=== PATIENT | female | born 1955 | race Caucasian/White ===

== ENCOUNTER → 2017-03-10 | Outpatient (CLI) | payer OTHER ==
[2017-03-10 09:26] LABS: ASPARTATE AMINO TRANSFERASE 16 U/L (15-37); BLOOD UREA NITROGEN 20 mg/dL (7-18)
== END | disposition home or self-care (01) ==
LOC: LAB 08:54
PROVIDERS: ATTEND Family Medicine
DX: E78.5 Hyperlipidemia, unspecified (principal)
CPT/HCPCS: 36415; 80053; 80061; 83036; 85025

== ENCOUNTER → 2017-05-07 | Outpatient (CLI) | payer OTHER | END | disposition home or self-care (01) | LOC: CVU 13:46 | PROVIDERS: ATTEND Internal Medicine Cardiovascular Disease | DX: I35.1 Nonrheumatic aortic (valve) insufficiency (principal) | CPT/HCPCS: 93306 ==

== ENCOUNTER 2017-07-28 16:32 | Emergency (ER) | payer OTHER ==
[~2017-07-28] VITALS: Ht 154.9 cm; Wt 72.0 kg
[2017-07-28] MEDS ORDERED: ROSU5TAB PO (16:43)
[2017-07-28] MEDS ORDERED: METO25TA35 PO (16:43)
[2017-07-28] MEDS ORDERED: CETI10TA24 PO (16:44)
[2017-07-28] MEDS ORDERED: SODIUM CHLORIDE 0.9% 1,000ML IVBOLUS ONE ×2 (17:00→20:00)
[2017-07-28 17:03] LABS: HEMATOCRIT 42.9 % (34.6-47.8); HEMOGLOBIN 14.5 g/dL (11.7-16.4); WHITE BLOOD COUNT 15.6 x10^3/uL (3.4-10)
[2017-07-28 17:16] LABS: BLOOD UREA NITROGEN 20 mg/dL (7-18)
[2017-07-28 17:30] LABS: IS PT STATUS REG ER OR PRE ER? YES
[2017-07-28 20:44] VITALS: BP 152/76
== END 2017-07-28 20:49 | disposition home or self-care (01) ==
LOC: ED 20:43
DX: R00.0 Tachycardia, unspecified (principal); E78.5 Hyperlipidemia, unspecified; I10 Essential (primary) hypertension
CPT/HCPCS: 36415; 71010; 80048; 82040; 83735; 84443; 84484; 85025; 85379; 93005; 96360; 96361; 99285; J7030

== ENCOUNTER → 2017-08-09 | Outpatient (CLI) | payer OTHER ==
[~2017-08-09] MED LIST: CETI10TA24 PO; METO25TA35 PO; ROSU5TAB PO
== END | disposition home or self-care (01) ==
LOC: CVU 09:15
PROVIDERS: ATTEND Internal Medicine Cardiovascular Disease
DX: I08.0 Rheumatic disorders of both mitral and aortic valves (principal); I10 Essential (primary) hypertension; E78.5 Hyperlipidemia, unspecified
CPT/HCPCS: 93306

== ENCOUNTER → 2017-08-27 | Outpatient (CLI) | payer OTHER | END | disposition home or self-care (01) | LOC: CFH 08:27 | DX: Z12.31 Encounter for screening mammogram for malignant neoplasm of breast (principal) | CPT/HCPCS: G0202 ==

== ENCOUNTER 2017-09-10 14:28 | Emergency (ER) | payer OTHER ==
[~2017-09-10] VITALS: Ht 154.9 cm; Wt 68.9 kg
[2017-09-10] MEDS ORDERED: ONDANSETRON 2MG/ML, 2ML ONE (16:15)
[2017-09-10 16:22] LABS: HEMATOCRIT 45.1 % (34.6-47.8); HEMOGLOBIN 15.1 g/dL (11.7-16.4); WHITE BLOOD COUNT 10.4 x10^3/uL (3.4-10)
[2017-09-10] MEDS ORDERED: SODIUM CHLORIDE 0.9% 1,000ML IVBOLUS ONE (16:30)
[2017-09-10] MEDS ORDERED: ONDANSETRON 2MG/ML, 2ML IVPush ONE (16:30)
[2017-09-10] MEDS ORDERED: SODIUM CHLORIDE FLUSH 10ML SYR IVF ONE (16:30)
[2017-09-10 16:34] LABS: ASPARTATE AMINO TRANSFERASE 38 U/L (15-37); BLOOD UREA NITROGEN 26 mg/dL (7-18)
[2017-09-10 17:33] VITALS: BP 131/74
== END 2017-09-10 17:48 | disposition home or self-care (01) ==
LOC: ED 15:51
DX: A08.4 Viral intestinal infection, unspecified (principal); E78.5 Hyperlipidemia, unspecified; I10 Essential (primary) hypertension
CPT/HCPCS: 36415; 80053; 81001; 83605; 83690; 85025; 87086; 96361; 96374; 99284; J2405; J7030

== ENCOUNTER → 2019-01-05 | Outpatient (CLI) | payer OTHER ==
[2019-01-05 10:25] LABS: BASOPHILS # (AUTO) 0.09 x10^3/uL (0-0.1); BASOPHILS % (AUTO) 1 % (0-1); EOSINOPHILS # (AUTO) 0.62 x10^3/uL (0-0.4); EOSINOPHILS % (AUTO) 7 % (1-7); LYMPHOCYTES # (AUTO) 2.23 x10^3/uL (1-3.4); LYMPHOCYTES % (AUTO) 24 % (22-44); MD NO; MEAN CORPUSCULAR HEMOGLOBIN 29.9 pg (27.0-34.8); MEAN CORPUSCULAR VOLUME 90.8 fL (80-100); MEAN PLATELET VOLUME 7.3 fL (7.4-10.4); MONOCYTES # (AUTO) 0.57 x10^3/uL (0.2-0.8); MONOCYTES % (AUTO) 6 % (2-9); NEUTROPHILS # (AUTO) 5.68 x10^3/uL (1.8-6.8); NEUTROPHILS % (AUTO) 62 % (42-75); PLATELET COUNT 271 x10^3/uL (130-400); RED BLOOD COUNT 4.94 x10^6/uL (3.82-5.3); RED CELL DISTRIBUTION WIDTH 12.9 % (9.6-15.2)
[2019-01-05 10:38] LABS: ALANINE AMINOTRANSFERASE 62 U/L (12-78); ALBUMIN 4.7 g/dL (3.4-5.0); ANION GAP 6 mmol/L (5-15); CALCIUM 8.5 mg/dL (8.5-10.1); CHLORIDE 105 mmol/L (98-107)
[2019-01-05 10:47] LABS: ALKALINE PHOSPHATASE 63 U/L (45-117); CHOL/HDL RATIO 3.6; CHOLESTEROL, TOTAL 165 mg/dL (140-239); CREATININE 0.74 mg/dL (0.55-1.02); HDL CHOL % 28 % (28-40); HDL CHOLESTEROL (DIRECT) 46 mg/dL (40-60); LDL CHOLESTEROL,CALCULATED 73 mg/dL (54-169); LDL/HDL RATIO 1.6 (0.5-3.0); T4 (THYROXINE) 10.7 mcg/dL (4.8-13.9); TOTAL PROTEIN 8.9 g/dL (6.4-8.2); TRIGLYCERIDES 230 mg/dL (50-200); VLDL CHOLESTEROL 46 mg/dL (0-25)
== END | disposition home or self-care (01) ==
LOC: LAB 10:07
PROVIDERS: ATTEND Nurse Practitioner Family
DX: E78.2 Mixed hyperlipidemia (principal); I10 Essential (primary) hypertension; R21 Rash and other nonspecific skin eruption; R23.2 Flushing
CPT/HCPCS: 36415; 80053; 80061; 82043; 82570; 84436; 84443; 84481; 85025

== ENCOUNTER 2019-03-17 07:04 | Outpatient (CLI) | payer OTHER | END 2019-03-17 23:59 | disposition home or self-care (01) | LOC: CFH 07:04 | PROVIDERS: ATTEND Nurse Practitioner Family | DX: Z12.31 Encounter for screening mammogram for malignant neoplasm of breast (principal) | CPT/HCPCS: 77067 ==

== ENCOUNTER → 2019-08-07 | Outpatient (CLI) | payer OTHER ==
[2019-08-07 08:02] LABS: ALANINE AMINOTRANSFERASE 57 U/L (12-78); ALBUMIN 4.1 g/dL (3.4-5.0); ANION GAP 7 mmol/L (5-15); CHLORIDE 106 mmol/L (98-107); CHOLESTEROL, TOTAL 187 mg/dL (140-239); CREATININE 0.74 mg/dL (0.55-1.02); TRIGLYCERIDES 273 mg/dL (50-200); VLDL CHOLESTEROL 55 mg/dL (0-25)
[2019-08-07 08:04] LABS: ALKALINE PHOSPHATASE 62 U/L (45-117); BILIRUBIN,TOTAL 0.5 mg/dL (0.2-1.0); CHOL/HDL RATIO 4.5; HDL CHOL % 22 % (28-40); HDL CHOLESTEROL (DIRECT) 42 mg/dL (40-60); LDL CHOLESTEROL,CALCULATED 90 mg/dL (54-169); LDL/HDL RATIO 2.1 (0.5-3.0)
== END | disposition home or self-care (01) ==
LOC: LAB 07:35
PROVIDERS: ATTEND Internal Medicine Cardiovascular Disease
DX: E78.2 Mixed hyperlipidemia (principal); I10 Essential (primary) hypertension; E83.51 Hypocalcemia; I35.1 Nonrheumatic aortic (valve) insufficiency; I44.0 Atrioventricular block, first degree; R00.0 Tachycardia, unspecified; R94.6 Abnormal results of thyroid function studies; Z68.28 Body mass index [BMI] 28.0-28.9, adult
CPT/HCPCS: 36415; 80053; 80061

== ENCOUNTER 2019-08-14 07:28 | Outpatient (CLI) | payer OTHER | END 2019-08-14 23:59 | disposition home or self-care (01) | LOC: CVU 07:28 | PROVIDERS: ATTEND Physician Assistant Medical | DX: I08.8 Other rheumatic multiple valve diseases (principal); I10 Essential (primary) hypertension; E78.5 Hyperlipidemia, unspecified | CPT/HCPCS: 93306 ==

== ENCOUNTER → 2019-08-25 | Outpatient (CLI) | payer OTHER | END | disposition home or self-care (01) | LOC: RAD 08:41 | PROVIDERS: ATTEND Nurse Practitioner | DX: E04.1 Nontoxic single thyroid nodule (principal) | CPT/HCPCS: 76536 ==

== ENCOUNTER 2019-09-12 08:55 | Outpatient (CLI) | payer OTHER ==
[2019-09-12 09:31] LABS: FREE T4 (FREE THYROXINE) 0.79 ng/dL (0.76-1.46)
== END 2019-09-12 23:59 | disposition home or self-care (01) ==
LOC: LAB 08:55
PROVIDERS: ATTEND Nurse Practitioner
DX: E83.51 Hypocalcemia (principal); R94.6 Abnormal results of thyroid function studies
CPT/HCPCS: 36415; 82330; 83970; 84439; 84443; 86376; 86800

== ENCOUNTER 2019-10-16 08:44 | Outpatient (CLI) | payer OTHER ==
[~2019-10-16 08:44] MED LIST changes: -CETI10TA24 PO; +CETI10TA26 PO
[2019-10-16 09:21] LABS: ANION GAP 11 mmol/L (5-15); CALCIUM 7.6 mg/dL (8.5-10.1); CHLORIDE 106 mmol/L (98-107)
[2019-10-16 09:26] LABS: ALANINE AMINOTRANSFERASE 45 U/L (12-78); ALKALINE PHOSPHATASE 57 U/L (45-117); BILIRUBIN,TOTAL 0.6 mg/dL (0.2-1.0); CREATININE 0.73 mg/dL (0.55-1.02); TOTAL PROTEIN 7.6 g/dL (6.4-8.2)
== END 2019-10-16 23:59 | disposition home or self-care (01) ==
LOC: LAB 08:44
PROVIDERS: ATTEND Nurse Practitioner
DX: E20.9 Hypoparathyroidism, unspecified (principal); R73.01 Impaired fasting glucose
CPT/HCPCS: 36415; 80053; 82306; 83036; 83735

== ENCOUNTER 2020-03-08 15:01 | Emergency (ER) | payer OTHER ==
[~2020-03-08] VITALS: Ht 157.5 cm; Wt 72.8 kg
--- NOTE | 2020-03-08 15:23 | NUR ---
PT IN HOSPITAL GOWN. PT PLACED ON CARIDAC MONITOR AND VITALS MONITORS. PT HR [id number], ERP AWARE. WILL CONTINUE TO MONITOR.
[2020-03-08 15:37] VITALS: BP 139/69
--- NOTE | 2020-03-08 16:22 | NUR ---
ASSUMED CARE FOR DISCHARGE ONLY Patient/Caregiver given discharge instructions and they have confirmed that they understand the instructions. Patient ambulatory with steady gait.
== END 2020-03-08 16:24 | disposition home or self-care (01) ==
LOC: ED 16:22
DX: S60.221A Contusion of right hand, initial encounter (principal); I10 Essential (primary) hypertension; E78.5 Hyperlipidemia, unspecified; R00.0 Tachycardia, unspecified; W23.1XXA Caught, crushed, jammed, or pinched between stationary objects, initial encounter; Y93.89 Activity, other specified; Y92.69 Other specified industrial and construction area as the place of occurrence of the external cause; Y99.0 Civilian activity done for income or pay
CPT/HCPCS: 93005; 99283

== ENCOUNTER → 2020-04-05 | Outpatient (CLI) | payer OTHER | END | disposition home or self-care (01) | LOC: CFH 07:07 | PROVIDERS: ATTEND Nurse Practitioner | DX: Z12.31 Encounter for screening mammogram for malignant neoplasm of breast (principal) | CPT/HCPCS: 77063; 77067 ==

== ENCOUNTER → 2020-04-16 | Outpatient (CLI) | payer OTHER ==
[2020-04-16 10:28] LABS: BASOPHILS # (AUTO) 0.04 x10^3/uL (0-0.1); BASOPHILS % (AUTO) 1 % (0-1); EOSINOPHILS # (AUTO) 0.22 x10^3/uL (0-0.4); EOSINOPHILS % (AUTO) 3 % (1-7); LYMPHOCYTES # (AUTO) 1.88 x10^3/uL (1-3.4); LYMPHOCYTES % (AUTO) 23 % (22-44); MD NO; MEAN CORPUSCULAR HEMOGLOBIN 29.6 pg (27.0-34.8); MEAN CORPUSCULAR HGB CONC 32.1 g/dL (32.4-35.8); MEAN CORPUSCULAR VOLUME 92.2 fL (80-100); MEAN PLATELET VOLUME 7.1 fL (7.4-10.4); MONOCYTES # (AUTO) 0.45 x10^3/uL (0.2-0.8); MONOCYTES % (AUTO) 6 % (2-9); NEUTROPHILS # (AUTO) 5.61 x10^3/uL (1.8-6.8); NEUTROPHILS % (AUTO) 68 % (42-75); PLATELET COUNT 238 x10^3/uL (130-400); RED BLOOD COUNT 4.65 x10^6/uL (3.82-5.3); RED CELL DISTRIBUTION WIDTH 13.1 % (9.6-15.2)
[2020-04-16 12:49] LABS: CHLORIDE 105 mmol/L (98-107)
[2020-04-16 13:00] LABS: ALANINE AMINOTRANSFERASE 55 U/L (12-78); ALBUMIN 4.3 g/dL (3.4-5.0); ALKALINE PHOSPHATASE 61 U/L (45-117); ANION GAP 7 mmol/L (5-15); BILIRUBIN,TOTAL 0.6 mg/dL (0.2-1.0); CALCIUM 7.9 mg/dL (8.5-10.1); CHOL/HDL RATIO 5.5; CHOLESTEROL, TOTAL 221 mg/dL (140-239); CREATININE 0.76 mg/dL (0.55-1.02); FREE T4 (FREE THYROXINE) 0.95 ng/dL (0.76-1.46); HDL CHOL % 18 % (28-40); HDL CHOLESTEROL (DIRECT) 40 mg/dL (40-60); LDL CHOLESTEROL,CALCULATED 113 mg/dL (54-169); LDL/HDL RATIO 2.8 (0.5-3.0); TOTAL PROTEIN 8.6 g/dL (6.4-8.2); TRIGLYCERIDES 338 mg/dL (50-200); VLDL CHOLESTEROL 68 mg/dL (0-25)
== END | disposition home or self-care (01) ==
LOC: LAB 10:13
PROVIDERS: ATTEND Nurse Practitioner
DX: E04.1 Nontoxic single thyroid nodule (principal); E06.3 Autoimmune thyroiditis; E83.51 Hypocalcemia
CPT/HCPCS: 36415; 80053; 80061; 82306; 82330; 83970; 84439; 84443; 84480; 85025

== ENCOUNTER → 2020-05-28 | Outpatient (CLI) | payer OTHER ==
[2020-05-28 09:15] LABS: ALANINE AMINOTRANSFERASE 46 U/L (12-78); ALBUMIN 4.2 g/dL (3.4-5.0); ANION GAP 7 mmol/L (5-15); CALCIUM 8.2 mg/dL (8.5-10.1); CHLORIDE 108 mmol/L (98-107); TRIGLYCERIDES 263 mg/dL (50-200); VLDL CHOLESTEROL 53 mg/dL (0-25)
[2020-05-28 09:17] LABS: ALKALINE PHOSPHATASE 63 U/L (45-117); BILIRUBIN,TOTAL 0.6 mg/dL (0.2-1.0); CHOL/HDL RATIO 3.5; CHOLESTEROL, TOTAL 152 mg/dL (140-239); CREATININE 0.73 mg/dL (0.55-1.02); HDL CHOL % 28 % (28-40); HDL CHOLESTEROL (DIRECT) 43 mg/dL (40-60); LDL CHOLESTEROL,CALCULATED 56 mg/dL (54-169); LDL/HDL RATIO 1.3 (0.5-3.0); TOTAL PROTEIN 8.1 g/dL (6.4-8.2)
== END | disposition home or self-care (01) ==
LOC: LAB 08:42
PROVIDERS: ATTEND Internal Medicine Cardiovascular Disease
DX: E78.2 Mixed hyperlipidemia (principal)
CPT/HCPCS: 36415; 80053; 80061

== ENCOUNTER → 2020-07-12 | Outpatient (CLI) | payer OTHER ==
[~2020-07-12] MED LIST changes: -CETI10TA26 PO; +CETI10TA76 PO
[2020-07-12 09:44] LABS: ALANINE AMINOTRANSFERASE 46 U/L (12-78); ALBUMIN 3.9 g/dL (3.4-5.0); ANION GAP 9 mmol/L (5-15); CALCIUM 8.6 mg/dL (8.5-10.1); CHLORIDE 107 mmol/L (98-107); CREATININE 0.73 mg/dL (0.55-1.02)
[2020-07-12 09:46] LABS: ALKALINE PHOSPHATASE 56 U/L (45-117); BILIRUBIN,TOTAL 0.6 mg/dL (0.2-1.0); TOTAL PROTEIN 7.7 g/dL (6.4-8.2)
== END | disposition home or self-care (01) ==
LOC: LAB 09:10
PROVIDERS: ATTEND Physician Assistant Medical
DX: E20.9 Hypoparathyroidism, unspecified (principal)
CPT/HCPCS: 36415; 80053; 82306; 82330; 83735; 83970

== ENCOUNTER → 2020-07-19 | Outpatient (CLI) | payer OTHER ==
[2020-07-19 09:16] LABS: ALANINE AMINOTRANSFERASE 49 U/L (12-78); ALBUMIN 3.9 g/dL (3.4-5.0); ANION GAP 7 mmol/L (5-15); CALCIUM 8.3 mg/dL (8.5-10.1); CHLORIDE 108 mmol/L (98-107); CHOLESTEROL, TOTAL 164 mg/dL (140-239); CREATININE 0.74 mg/dL (0.55-1.02)
[2020-07-19 09:18] LABS: ALKALINE PHOSPHATASE 60 U/L (45-117); BILIRUBIN,TOTAL 0.5 mg/dL (0.2-1.0); CHOL/HDL RATIO 3.7; HDL CHOL % 27 % (28-40); HDL CHOLESTEROL (DIRECT) 44 mg/dL (40-60); LDL CHOLESTEROL,CALCULATED 66 mg/dL (54-169); LDL/HDL RATIO 1.5 (0.5-3.0); TOTAL PROTEIN 7.6 g/dL (6.4-8.2); TRIGLYCERIDES 270 mg/dL (50-200); VLDL CHOLESTEROL 54 mg/dL (0-25)
[2020-07-19 09:55] LABS: BASOPHILS % (AUTO) 1 % (0-1); EOSINOPHILS % (AUTO) 4 % (1-7); LYMPHOCYTES % (AUTO) 28 % (22-44); MEAN CORPUSCULAR HEMOGLOBIN 29.8 pg (27.0-34.8); MEAN PLATELET VOLUME 7.9 fL (7.4-10.4); MONOCYTES % (AUTO) 6 % (2-9); NEUTROPHILS % (AUTO) 62 % (42-75); PLATELET COUNT 235 x10^3/uL (130-400); RED BLOOD COUNT 4.39 x10^6/uL (3.82-5.3); RED CELL DISTRIBUTION WIDTH 12.9 % (9.6-15.2)
[2020-07-19 10:16] LABS: MD NO
== END | disposition home or self-care (01) ==
LOC: LAB 08:50
PROVIDERS: ATTEND Internal Medicine Cardiovascular Disease
DX: I10 Essential (primary) hypertension (principal); E66.3 Overweight; E78.2 Mixed hyperlipidemia; E87.6 Hypokalemia; I35.1 Nonrheumatic aortic (valve) insufficiency; R00.0 Tachycardia, unspecified; R00.2 Palpitations
CPT/HCPCS: 36415; 80053; 80061; 85025

== ENCOUNTER → 2020-07-26 | Outpatient (CLI) | payer OTHER | END | disposition home or self-care (01) | LOC: RAD 08:43 | PROVIDERS: ATTEND Physician Assistant Medical | DX: E04.1 Nontoxic single thyroid nodule (principal) | CPT/HCPCS: 76536 ==

== ENCOUNTER → 2020-08-23 | Outpatient (CLI) | payer OTHER ==
[2020-08-23 09:28] LABS: ALANINE AMINOTRANSFERASE 44 U/L (12-78); ALBUMIN 4.1 g/dL (3.4-5.0); ANION GAP 6 mmol/L (5-15); CALCIUM 8.5 mg/dL (8.5-10.1); CHLORIDE 110 mmol/L (98-107)
[2020-08-23 09:31] LABS: ALKALINE PHOSPHATASE 48 U/L (45-117); BILIRUBIN,TOTAL 0.5 mg/dL (0.2-1.0); CREATININE 0.77 mg/dL (0.55-1.02); TOTAL PROTEIN 7.7 g/dL (6.4-8.2)
== END | disposition home or self-care (01) ==
LOC: LAB 09:02
PROVIDERS: ATTEND Physician Assistant Medical
DX: E20.9 Hypoparathyroidism, unspecified (principal)
CPT/HCPCS: 36415; 80053; 82330

== ENCOUNTER 2021-01-24 09:06 | Outpatient (CLI) | payer OTHER ==
[2021-01-24 09:23] LABS: BASOPHILS % (AUTO) 1 % (0-1); EOSINOPHILS % (AUTO) 3 % (1-7); LYMPHOCYTES % (AUTO) 27 % (22-44); MEAN CORPUSCULAR HEMOGLOBIN 30.3 pg (27.0-34.8); MEAN CORPUSCULAR HGB CONC 33.4 g/dL (32.4-35.8); MEAN PLATELET VOLUME 7.4 fL (7.4-10.4); MONOCYTES % (AUTO) 7 % (2-9); NEUTROPHILS % (AUTO) 63 % (42-75); PLATELET COUNT 236 x10^3/uL (130-400); RED BLOOD COUNT 4.26 x10^6/uL (3.82-5.3); RED CELL DISTRIBUTION WIDTH 13.1 % (9.6-15.2)
[2021-01-24 09:25] LABS: MD NO
[2021-01-24 09:34] LABS: ALANINE AMINOTRANSFERASE 62 U/L (12-78); ALBUMIN 4.2 g/dL (3.4-5.0); ANION GAP 4 mmol/L (5-15); CALCIUM 8.2 mg/dL (8.5-10.1); CHLORIDE 108 mmol/L (98-107); CHOLESTEROL, TOTAL 189 mg/dL (140-239); TRIGLYCERIDES 243 mg/dL (50-200); VLDL CHOLESTEROL 49 mg/dL (0-25)
[2021-01-24 09:36] LABS: ALKALINE PHOSPHATASE 49 U/L (45-117); BILIRUBIN,TOTAL 0.5 mg/dL (0.2-1.0); CHOL/HDL RATIO 4.4; HDL CHOL % 23 % (28-40); HDL CHOLESTEROL (DIRECT) 43 mg/dL (40-60); LDL CHOLESTEROL,CALCULATED 97 mg/dL (54-169); LDL/HDL RATIO 2.3 (0.5-3.0); TOTAL PROTEIN 7.8 g/dL (6.4-8.2)
== END 2021-01-24 23:59 | disposition home or self-care (01) ==
LOC: LAB 09:06
PROVIDERS: ATTEND Internal Medicine Cardiovascular Disease
DX: I10 Essential (primary) hypertension (principal); I35.1 Nonrheumatic aortic (valve) insufficiency; E06.3 Autoimmune thyroiditis; E83.51 Hypocalcemia; E78.2 Mixed hyperlipidemia
CPT/HCPCS: 36415; 80053; 80061; 82306; 82330; 85025

== ENCOUNTER → 2021-02-05 | Outpatient (CLI) | payer OTHER | END | disposition home or self-care (01) | LOC: CFH 08:21 | PROVIDERS: ATTEND Nurse Practitioner Primary Care | DX: M85.88 Other specified disorders of bone density and structure, other site (principal); K76.0 Fatty (change of) liver, not elsewhere classified; E78.2 Mixed hyperlipidemia; M81.8 Other osteoporosis without current pathological fracture | CPT/HCPCS: 75571; 77080 ==

== ENCOUNTER → 2021-04-15 | Outpatient (CLI) | payer OTHER ==
[2021-04-15 10:08] LABS: MICROSCOPIC AUTO
[2021-04-15 10:21] LABS: ALBUMIN 4.2 g/dL (3.4-5.0); ANION GAP 8 mmol/L (5-15); CALCIUM 8.3 mg/dL (8.5-10.1); CHLORIDE 105 mmol/L (98-107)
[2021-04-15 10:26] LABS: BASOPHILS % (AUTO) 1 % (0-1); EOSINOPHILS % (AUTO) 3 % (1-7); LYMPHOCYTES % (AUTO) 21 % (22-44); MEAN CORPUSCULAR HEMOGLOBIN 30.5 pg (27.0-34.8); MEAN CORPUSCULAR HGB CONC 33.4 g/dL (32.4-35.8); MEAN PLATELET VOLUME 7.9 fL (7.4-10.4); MONOCYTES % (AUTO) 6 % (2-9); NEUTROPHILS % (AUTO) 69 % (42-75); PLATELET COUNT 254 x10^3/uL (130-400); RED BLOOD COUNT 4.57 x10^6/uL (3.82-5.3)
[2021-04-15 10:31] LABS: ALANINE AMINOTRANSFERASE 50 U/L (12-78); ALKALINE PHOSPHATASE 62 U/L (45-117); BILIRUBIN,TOTAL 0.6 mg/dL (0.2-1.0); CREATININE 0.66 mg/dL (0.55-1.02); TOTAL PROTEIN 8.4 g/dL (6.4-8.2)
== END | disposition home or self-care (01) ==
LOC: LAB 09:30
PROVIDERS: ATTEND Physician Assistant Medical
DX: Z13.220 Encounter for screening for lipoid disorders (principal); I10 Essential (primary) hypertension; E55.9 Vitamin D deficiency, unspecified; E78.2 Mixed hyperlipidemia; R79.9 Abnormal finding of blood chemistry, unspecified; E20.9 Hypoparathyroidism, unspecified; E04.1 Nontoxic single thyroid nodule; L40.9 Psoriasis, unspecified; Z79.899 Other long term (current) drug therapy
CPT/HCPCS: 36415; 80053; 80061; 81001; 82306; 82330; 82525; 82652; 82784; 82785; 83704; 83735; 83970; 84100; 84439; 84443; 84481; 84630; 85025; 86200; 86225; 86235; 86376; 86430; 87086

== ENCOUNTER → 2021-05-16 | Outpatient (CLI) | payer OTHER | END | disposition home or self-care (01) | LOC: RAD 07:29 | PROVIDERS: ATTEND Nurse Practitioner Primary Care | DX: E04.1 Nontoxic single thyroid nodule (principal); E03.9 Hypothyroidism, unspecified | CPT/HCPCS: 76536 ==

== ENCOUNTER 2021-06-17 09:23 | Outpatient (CLI) | payer OTHER ==
[2021-06-17 10:11] LABS: FREE T4 (FREE THYROXINE) 0.86 ng/dL (0.76-1.46)
== END 2021-06-17 23:59 | disposition home or self-care (01) ==
LOC: LAB 09:23
PROVIDERS: ATTEND Nurse Practitioner Primary Care
DX: Z13.220 Encounter for screening for lipoid disorders (principal); I10 Essential (primary) hypertension; E55.9 Vitamin D deficiency, unspecified; E78.2 Mixed hyperlipidemia; R79.9 Abnormal finding of blood chemistry, unspecified; E20.9 Hypoparathyroidism, unspecified; E03.9 Hypothyroidism, unspecified; E04.1 Nontoxic single thyroid nodule; L40.9 Psoriasis, unspecified; Z71.3 Dietary counseling and surveillance; Z79.899 Other long term (current) drug therapy
CPT/HCPCS: 36415; 84439; 84443; 84481

== ENCOUNTER 2021-07-01 08:34 | Outpatient (CLI) | payer OTHER ==
[2021-07-01 09:20] LABS: ALANINE AMINOTRANSFERASE 50 U/L (12-78); ALBUMIN 4.1 g/dL (3.4-5.0); ANION GAP 10 mmol/L (5-15); CALCIUM 7.8 mg/dL (8.5-10.1); CHLORIDE 107 mmol/L (98-107); MICROSCOPIC AUTO
[2021-07-01 09:29] LABS: ALKALINE PHOSPHATASE 63 U/L (45-117); BILIRUBIN,TOTAL 0.6 mg/dL (0.2-1.0); FREE T4 (FREE THYROXINE) 0.88 ng/dL (0.76-1.46); TOTAL PROTEIN 8.1 g/dL (6.4-8.2)
== END 2021-07-01 23:59 | disposition home or self-care (01) ==
LOC: LAB 08:34
PROVIDERS: ATTEND Nurse Practitioner Primary Care
DX: Z13.220 Encounter for screening for lipoid disorders (principal); E03.9 Hypothyroidism, unspecified; E55.9 Vitamin D deficiency, unspecified; E04.1 Nontoxic single thyroid nodule; E78.2 Mixed hyperlipidemia; R79.9 Abnormal finding of blood chemistry, unspecified; E20.9 Hypoparathyroidism, unspecified; I10 Essential (primary) hypertension; L40.9 Psoriasis, unspecified; Z71.3 Dietary counseling and surveillance; Z79.899 Other long term (current) drug therapy
CPT/HCPCS: 36415; 80053; 80061; 81001; 82043; 82306; 82525; 82652; 83704; 83970; 84100; 84439; 84443; 84481; 84630; 87086